=== PATIENT | male | born 1965 | race African-American/Black ===

== ENCOUNTER 2017-09-11 09:20 | Emergency (ER) | payer OTHER ==
[2017-09-11] MEDS ORDERED: METHOCARBAMOL 500 MG TAB ONE (10:07)
[2017-09-11] MEDS ORDERED: HYDROCODONE/APAP 10/325 TAB ONE (10:07)
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
[2017-09-11] MEDS ORDERED: MORPHINE 10 MG/ML VIAL ONE (12:05)
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
== END 2017-09-11 12:34 | disposition home or self-care (01) ==
LOC: ER 09:20
DX: R07.1 Chest pain on breathing (principal); I10 Essential (primary) hypertension; V18.0XXA Pedal cycle driver injured in noncollision transport accident in nontraffic accident, initial encounter; F17.210 Nicotine dependence, cigarettes, uncomplicated; Z88.8 Allergy status to other drugs, medicaments and biological substances
CPT/HCPCS: 71045; 96372; 99283